=== PATIENT | female | born 1995 | race Two or more races ===

== ENCOUNTER 2020-08-05 07:57 | Emergency (ER) | payer MEDICAID ==
[~2020-08-05] VITALS: Ht 165.1 cm; Wt 72.6 kg
[2020-08-05 08:35] LABS: Urine Bacteria MANY /hpf (None Seen); Urine Blood TRACE /uL (Negative); Urine Mucus FEW (None Seen); Urine Specific Gravity 1.033 (1.001-1.035); Urine WBC 6 /hpf (0 - 5)
[2020-08-05 08:56] LABS: Amphetamine Screen, Urine POSITIVE (NEGATIVE); Barbiturate Scree,Urine NEGATIVE (NEGATIVE); Benzodiazephine Screen, Urine NEGATIVE (NEGATIVE); Cannabinoid Screen, Urine NEGATIVE (NEGATIVE); Cocaine Screen, Urine NEGATIVE (NEGATIVE); Opiate Scree,Urine NEGATIVE (NEGATIVE)
[2020-08-05 09:06] LABS: Phencyclidine Screen, Urine NEGATIVE (NEGATIVE)
[2020-08-05 10:09] VITALS: BP 138/64
== END 2020-08-05 10:10 | disposition home or self-care (01) ==
LOC: EDBD 07:57 → ER 07:57
DX: N39.0 Urinary tract infection, site not specified (principal); F15.90 Other stimulant use, unspecified, uncomplicated; V49.9XXA Car occupant (driver) (passenger) injured in unspecified traffic accident, initial encounter; Y93.89 Activity, other specified; Y92.89 Other specified places as the place of occurrence of the external cause; Y99.8 Other external cause status
CPT/HCPCS: 70450; 71045; 73100; 73590; 80307; 81001; 81025

== ENCOUNTER 2020-08-30 13:34 | Emergency (ER) | payer MEDICAID, OTHER ==
[~2020-08-30] VITALS: Ht 167.6 cm; Wt 72.6 kg
[2020-08-30 14:19] VITALS: BP 130/80
[2020-08-30] MEDS ORDERED: ONDANSETRON HCL 4 MG/2 ML VIAL IV ONE (15:00)
[2020-08-30] MEDS ORDERED: SODIUM CHLORIDE 0.9% 1,000 ML IVB ONE (15:00)
== END 2020-08-30 15:22 | disposition left against medical advice (07) ==
LOC: ER 13:34
DX: G92 Toxic encephalopathy (principal); F19.10 Other psychoactive substance abuse, uncomplicated; F15.20 Other stimulant dependence, uncomplicated; R41.0 Disorientation, unspecified; R00.0 Tachycardia, unspecified; Z59.0 Homelessness
CPT/HCPCS: 93005

== ENCOUNTER 2023-03-20 15:50 | Emergency (ER) | payer MEDICAID ==
[~2023-03-20] VITALS: Ht 167.6 cm; Wt 68.0 kg
[2023-03-20] MEDS ORDERED: TETANUS-DIPTH-ACEL PERTUSSIS 0.5ML SYR Tdap IM ONE (18:00)
[2023-03-20] MEDS ORDERED: ONDANSETRON HCL 4 MG/2 ML VIAL IV ONE (18:00)
[2023-03-20] MEDS ORDERED: SODIUM CHLORIDE 0.9% 1,000 ML IV ONE (18:00)
[2023-03-20] MEDS ORDERED: cefTRIAXone 1GM/50ML D5W 50 ML IV ONE (18:15)
[2023-03-20 19:05] LABS: Basophils # (auto) 0 10 ^3/uL (0-0.2); Basophils % (auto) 0.4 % (0.0-2.0); Eosinophils # (auto) 0.1 10 ^3/uL (0-0.8); Lymphocytes # (auto) 0.9 10 ^3/uL (0.4-5.4); Mean Corpuscular Hemoglobin 30.6 pg (28.0-32.0); Mean Corpuscular Hgb Conc. 33.4 g/dL (32.0-36.0); Mean Corpuscular Volume 91.8 fL (80.0-100.0); Monocytes # (auto) 0.2 10 ^3/uL (0-1.3); Monocytes % (auto) 4.5 % (0.0-12.0); Neutrophils # (auto) 4.2 10 ^3/uL (1.6-8.6); Neutrophils % (auto) 78.1 % (37.0-80.0); Nucleated Red Blood Cells % 0.1 %; Red Blood Cells 4.58 10^6/uL (4.0-5.20); Red Cell Distribution Width 13.5 % (11.8-14.3); White Blood Cell 5.4 10^3/uL (4.4-10.8)
[2023-03-20 19:12] LABS: Albumin 3.9 g/dL (3.4-5.0); Calcium 8.8 mg/dL (8.5-10.1); Potassium 4.8 mmol/L (3.5-5.1)
[2023-03-20 19:14] LABS: Salicylate < 1.7 mg/dL (2.8-20.0)
[2023-03-20 19:17] LABS: BUN/Creatinine Ratio 19.3 (10.0-20.0); Bilirubin, Total 0.4 mg/dL (0.2-1.0); Total Protein 8.1 g/dL (6.4-8.2)
[2023-03-20 19:20] LABS: INR 0.96 (0.9-1.15)
[2023-03-20 19:26] LABS: Acetaminophen < 2.0 ug/mL (10-30)
[2023-03-20 20:41] LABS: Urine Amorphous Crystal FEW /hpf (None Seen); Urine Bacteria FEW /hpf (None Seen); Urine Blood Negative /uL (Negative); Urine Mucus FEW (None Seen); Urine Specific Gravity 1.022 (1.001-1.035); Urine WBC 21 /hpf (0 - 5)
[2023-03-20 21:12] VITALS: BP 128/81
[2023-03-20] MEDS ORDERED: CEPH500T PO (22:16)
[2023-03-20] MEDS ORDERED: IBUPROFEN 400 MG TAB PO ONE (22:30)
[2023-03-20] MEDS ORDERED: ACETAMINOPHEN 325 MG TAB PO ONE (22:30)
== END 2023-03-20 22:58 | disposition home or self-care (01) ==
LOC: EDBD 15:50 → ER 15:50
DX: S61.011A Laceration without foreign body of right thumb without damage to nail, initial encounter (principal); S11.91XA Laceration without foreign body of unspecified part of neck, initial encounter; X58.XXXA Exposure to other specified factors, initial encounter; Y93.89 Activity, other specified; Y92.89 Other specified places as the place of occurrence of the external cause; Y99.8 Other external cause status
CPT/HCPCS: 12002; 36415; 70450; 71045; 72125; 80053; 80329; 81001; 81025; 84443; 85025; 85610; 85730; 90715; 96365; 96372; 96375; 99285; J0696; J2405; J7030